=== PATIENT | female | born 1995 | race Caucasian/White ===

== ENCOUNTER 2023-08-21 09:47 | Outpatient (CLI) | payer OTHER, SELFPAY ==
[2023-08-21 14:46] LABS: Chlamydia DNA Amplified* NOT DETECTED (No Detected); GC DNA Amplified* NOT DETECTED (No Detected)
== END 2023-08-21 09:48 | disposition home or self-care (01) ==
PROVIDERS: Visit Provider Physician Assistant
DX: Z34.91 Encounter for supervision of normal pregnancy, unspecified, first trimester (principal); Z3A.09 9 weeks gestation of pregnancy
CPT/HCPCS: 76817; 86592; 86703; 86704; 86706; 86762; 86787; 86803; 86850; 86900; 86901; 87086; 87340; 87491; 87591

== ENCOUNTER 2023-11-06 11:26 | Outpatient (CLI) | payer OTHER, SELFPAY ==
--- NOTE | 2023-11-06 11:45 | CRLHL7_ITS ---
For Patients: As a result of the Century Cures Act, medical imaging exams and procedure reports are released immediately into your electronic medical record. You may view this report before your referring provider. If you have questions, please contact your health care provider. INDICATION: Evaluate anatomy. COMPARISON: 08/21/2023 TECHNIQUE: Real time parry scale imaging of the fetus was performed as well as color Doppler analysis of the umbilical vessels. FINDINGS: Sonographic imaging demonstrates a single living intrauterine gestation. Fetus demonstrates a regular cardiac rate of 131 beats per minute. Fetus has a cephalic position. The placenta lies posterior. The edge of the placenta is located 4.3 cm from the internal cervical os. Amniotic fluid volume appears normal. Single deepest vertical pocket: 6.7 cm. The cervix is closed and measures 3.3 cm in length. The composite ultrasound gestational age is calculated at 20 weeks 3 days with an estimated sonographic due date of 03/22/2024. The estimated weight is 343 grams which lies at the 70th %. The following biometric measurements were obtained: Biparietal diameter: 4.9 cm/20 weeks 6 days 87th% Head circumference: 17.8 cm/20 weeks 2 days 62nd% Abdominal circumference: 15.0 cm/20 weeks 2 days 59th% Femur length: 3.3 cm/20 weeks 1 day 56th% The HC/AC ratio measures: 1.18 range (1.07-1.25) On anatomic survey, there is a normal appearance of the cerebral ventricles, cavum septi pellucidi, cisterna magna and cerebellum. The nose, lips, and facial profile appear normal. The cervical, thoracic and lumbar spine are well visualized and appear normal. There is a normal four-chamber heart view and the left and right ventricular outflow tracts appear normal. The diaphragm and stomach appear normal. The kidneys and bladder also appear normal. There is a normal three-vessel cord and cord insertion site. The four extremities appear normal. IMPRESSION: Normal OB ultrasound exam with concordance of clinical and sonographic dating. No intrinsic abnormalities noted on anatomic survey. Dictated by Roshan Fang MD @ 11/06/2023 2:14:57 PM (Electronically Signed)
== END 2023-11-06 11:27 | disposition home or self-care (01) ==
LOC: US 11:26
PROVIDERS: Visit Provider Advanced Practice Midwife
DX: Z34.92 Encounter for supervision of normal pregnancy, unspecified, second trimester (principal); Z3A.20 20 weeks gestation of pregnancy
CPT/HCPCS: 76805

== ENCOUNTER 2024-01-01 08:33 | Outpatient (CLI) | payer OTHER, SELFPAY | END 2024-01-01 08:34 | disposition home or self-care (01) | LOC: NFLDREF 01-05 13:49 | PROVIDERS: Visit Provider Midwife | DX: Z34.92 Encounter for supervision of normal pregnancy, unspecified, second trimester (principal); Z3A.27 27 weeks gestation of pregnancy | CPT/HCPCS: 86592 ==

== ENCOUNTER 2024-02-26 09:33 | Outpatient (CLI) | payer OTHER, SELFPAY ==
[2024-02-27 10:21] LABS: Strep B DNA Probe Negative (Negative)
[2024-02-27 11:21] LABS: Strep B Susceptibility Needed? No
== END 2024-02-26 09:34 | disposition home or self-care (01) ==
LOC: NFLDREF 09:33
PROVIDERS: Visit Provider Advanced Practice Midwife
DX: Z34.03 Encounter for supervision of normal first pregnancy, third trimester (principal)
CPT/HCPCS: 87081; 87653

== ENCOUNTER 2024-03-19 11:58 | Inpatient (IN) | payer OTHER, SELFPAY ==
[2024-03-19] VITALS (15 sets, daily range): BP systolic 121–137; BP diastolic 76–89; PULSE 52–72; RESP 14–20; TEMP 36.6–37.1; O2SAT 97; BMI 31.4
[2024-03-19 11:47] LABS: Amnisure Rom* POSITIVE
--- NOTE | 2024-03-19 12:41 | W.PM.LDBA ---
Subjective History of Present Illness Narrative: Nette is a 29 yo at 39 0/7 weeks gestation being admitted to Labor and Delivery for ROM of clear fluid that occurred at 7 am this morning. She reports she woke up to a large gush of fluid. She then tried a small pad that she filled 3 of them over the course of an hour. On arrival, amnisure was positive. She continues to leak small amounts of pink-tinged clear fluid. She has started to feel mild cramping but denies painful contractions or bleeding. She is supported in her labor by Luis. She is encouraged to do the labor warm up, eat some lunch, and consider ways to encourage labor. Her full history and physical was dictated by Jaison Kenney CNM on 03/04/24. Please see this for details. Specific Issues/Plans Specific Issues/Plan: ? Partner: ?Luis. H&P completed by DORIS on 03/04/2024? ? No OB problems ? Imaging:? 1st trimester: Single viable intrauterine with estimated gestational age of 9 weeks and 0 days and estimated date of delivery of 03/25/2024. ? Anatomy scan: 11/06/2023 ? ? COVID: ? Flu:? ? Tdap:? 01/13/2024? 32wk Mental Health:? 34wk hgb:? ? Pap: (Only high-risk abnormal pap in problem list) OB - Problem Based A/P Additional Plan (1) PROM (premature rupture of membranes): Status: Acute (2) 39 weeks gestation of : Status: Acute Plan ASSESSMENT:? 29 at 39 0/7 weeks gestation? complicated by:?none Labor type: Spontaneous, early labor? Category 1 FHR pattern.?? Labor complicated by: PROM? GBS negative? ? PLAN:? 1. Routine intrapartum cares as ordered. We discussed PROM and typically labor starts within 24 hours after ROM. We reviewed recommendations are to start pitocin at onset of ROM if not caleb vs expectant management of 6-12 hours. We elected to continue with expectant management at this time. She is encouraged to be active, do labor warm up, can consider nipple stim, and rest to allow labor to start on it's own. At 12 hours we will reassess and consider pitocin augmentation if needed. Plan to hold off on cervical exam due to ROM until 12 hours. All questions answered. Patient agrees with plan. 2. Monitoring per policy, intermittent? 3. Planning unmedicated . Desires water . Consent signed. Hep C negative. Candidate for analgesia of choice.?? 4. Patient encouraged to reposition and ambulate to promote physiologic labor and .? 5. Anticipate ? Delivery/Labor/Induction Plan Plan: expectant management OB Result Labs Blood Type: A (+) positive Rubella: immune RPR/VDLR: nonreactive GBS Status: negative HBsAG: negative OB Exam Physical Exam Vital signs: Pulse BP Pulse Ox 65 123/78 97 03/19/24 11:21 03/19/24 11:21 03/19/24 11:22 Narrative: Vitals Reviewed Constitutional:? Alert and oriented x3 HEENT:? Normocephalic, atraumatic Neck:? Supple Lungs:? Clear to auscultation bilaterally Heart:? Regular rate and rhythm, no murmur, rub or gallop Abdomen:? Soft, nontender, and gravid. Vertex confirmed by bedside US. Extremities:? No edema or erythema Cervix: deferred due to ROM NST: 130 bpm/moderate variability/15x15 accelerations/no decelerations/contractions irregular Detailed Labor and Delivery Exam Patient Gravid: Yes
--- NOTE | 2024-03-19 20:31 | PM.OBPNL ---
Subjective Time Seen by Provider: 19:05 Date Seen: 03/19/24 Narrative: Nette is a at 39 0/7 weeks gestation that presents for PROM this morning at 7 am. She has been very active today with position changes, walking, the birthing ball, and balancing rest. She is feeling cramping, maybe an occasional contraction. She is coping well and supported by her . She continues to leak clear, pink-tinged fluid. She reports active movement and denies any bleeding. Objective Vital Signs: Last Vital Signs Temp 98.4 F 03/19/24 19:43 Pulse 56 L 03/19/24 19:34 Resp 18 03/19/24 19:43 BP 137/89 03/19/24 19:34 Pulse Ox 97 03/19/24 11:22 Plan Plan: ASSESSMENT:? 29 at 39 0/7 weeks gestation? complicated by:?none Labor type: Spontaneous, early labor? Category 1 FHR pattern?? Labor complicated by: PROM? GBS negative? ? PLAN:? 1. Routine intrapartum cares as ordered. We discussed PROM and typically labor starts within 24 hours after ROM. We discussed Pitocin use vs continuing with expectant management. She desires a few more hours. Will reassess then. 2. Monitoring per policy, intermittent. Recommended an NST to assess contraction pattern. 3. Planning unmedicated . Desires water . Consent signed. Hep C negative. Candidate for analgesia of choice.?? 4. Patient encouraged to reposition and ambulate to promote physiologic labor and .? 5. Anticipate .
[2024-03-20] VITALS (113 sets, daily range): BP systolic 99–148; BP diastolic 54–95; PULSE 48–116; RESP 18; TEMP 36.6–37.5; O2SAT 92–100
[2024-03-20] MEDS: LACTATED RINGERS 1000 ML 1,000 ML 999 ML IV ×2 (04:49→05:43)
[2024-03-20 04:59] LABS: Basophils Percent Auto 0.1 % (0.0-3.0); Hematocrit 38.4 % (33.0-51.0); Hemoglobin* 13.4 gm/dL (12.0-16.0); Immature Granulocytes Pct Auto 1.2 %; Lymphocytes Percent Auto 9.6 % (20-44); Mean Corpuscular HGB Conc 35 gm/dL (32-36); Mean Corpuscular Hemoglobin 32 pg (26-34); Mean Corpuscular Volume 92 fL (80-100); Monocytes Percent Auto 4.3 % (0.0-11.0); Neutrophils Percent Auto 83.8 % (42.0-72.0); Platelet Count* 174 K/uL (140-440); Red Blood Count 4.16 m/uL (4.00-5.20); White Blood Count* 17.26 K/uL (4.50-11.00)
[2024-03-20 05:00] LABS: Slide Review Reflex No
[2024-03-20] MEDS: ROPIVACAINE 0.2% 100 ml 100 ML 12 MG EPIDURAL (05:17)
[2024-03-20] MEDS: LIDOCAINE 2% (PF) 5 ML VIAL EPIDURAL (05:18)
--- NOTE | 2024-03-20 05:21 | PM.OBPNL ---
Subjective Date Seen: 03/20/24 Narrative: Nette is a 29 yo G1 at 39 1/7 weeks gestation that presented yesterday with PROM. She had elected expectant management and was very motivated to encourage labor with position changes, ambulation, labor warm up, and rest. She is supported in labor by her , Luis. After last exam around 1900, she was still fairly comfortable but started reporting contractions were intensifying. Her face was flushed at this time and she desired to give it more time before considering pitocin. She has been afebrile. At midnight, she started to work through contractions with breathing and reported they were more regular and intense. At 0330, I was notified to come assess patient as she had entered the small tub and was starting to have a lot of pressure. She was offered to exit the small tub and move to the labor tub which she desired. A cervical exam was performed before she entered the large waterbirth tub. She was 5/70/0, baby had moved down a lot. She was starting to act very panicky and stated multiple times she could not do it anymore. After about an hour in the tub, she requested an epidural and was returned to the bed for IV, fluids, and anesthesia was notified of her request for an epidural. While waiting for an epidural she has reported increase rectal pressure and more constant pressure in her vagina. Objective Exam: Objective: Constitutional: Alert and oriented x3, moderate/severe distress, coping well Vital signs stable, see nurse documentation Abdomen: gravid, contractions palpate moderate/strong with contractions and soft between Cervix: 5 cm/70%/0 station/vertex NST: 135 bpm/moderate variability/15x15 accelerations/variable decelerations/contractions every 2-3 minutes Vital Signs: Last Vital Signs Temp 98.4 F 03/20/24 02:46 Pulse 75 03/20/24 04:50 Resp 18 03/20/24 02:46 BP 124/70 03/20/24 04:50 Pulse Ox 98 03/20/24 02:23 Plan Plan: ASSESSMENT:? 29 at 39 1/7 weeks gestation? complicated by:?none Labor type: Spontaneous, active labor? Category 1 FHR pattern?? Labor complicated by: PROM, ROM >18 hours? GBS negative? ? PLAN:? 1. Routine intrapartum cares as ordered. Continue with expectant management. 2. Monitoring per policy, continuous with epidural. 3. Desires epidural, will continue until delivery. 4. Patient encouraged to reposition to promote physiologic labor and .? 5. ROM >18 hours, will continue to monitor status and temperature. 6. Anticipate .
[2024-03-20] MEDS: fentaNYL 250 MCG/5 ML inj 100 MCG EPIDURAL (05:35)
--- NOTE | 2024-03-20 05:51 | PM.ANBPRC ---
[facility] Medical History History of dysmenorrhea ?Z87.42 - Personal history of other diseases of the female genital tract (ICD-10) Surgical History History of third molar tooth extraction (2016) ?K08.409 - Partial loss of teeth, unspecified cause, unspecified class (ICD-10) Family History Father High blood pressure High cholesterol Mother Thyroid disease Aunt Thyroid disease Maternal Grandmother Thyroid disease Paternal Grandfather Thyroid cancer Other Colon cancer Social History Narrative: Occupation: Speech therapist. Marital status: . Evangelical/cultural needs: no. Chemical or radiation exposure: no. Pre- tobacco use: no. Pre- alcohol use: 0-1 per week. Current tobacco use: no. Current alcohol use: no. Recreational drug use: no. Dietary restrictions: no. Blood transfusion acceptable in an emergency: yes. History of depression or currently depressed: no. Current or past physical, emotional, or sexual mistreatment: no. Problems that will make it hard to make it to appointments: no. What is your current living situation?: I presently have a place to live Problems where you live: no known problems In the past 12 months, utilities in danger of being shut off: no In past 12 months, lack of transportation kept you from medical appts, meetings, work, or getting things needed for daily living: no In the past 12 mos, have been you worried that your food would run out before you had money to buy more?: never true In the past 12 mos, the food you bought just didn't last and you didn't have money to buy more?: never true Smoking Status: Never smoker How often does anyone, including family, friends and others, physically hurt you: never How often does anyone, including family, friends and others, insult or talk down to you: never How often does anyone, including family, friends and others, threaten you with harm: never How often does anyone, including family, friends and others, scream or curse at you: never Meds Home Medications and Allergies Home Medications ?Medication ?Instructions ?Recorded ?Confirmed ?Type docosahexaenoic acid 200 mg mg PO 08/21/23 03/18/24 History capsule ( DHA) Allergies Allergy/AdvReac Type Severity Reaction Status Date / Time No Known Drug Allergies Allergy Verified 03/18/24 09:25 Results Labs Labs: Laboratory Results - last 24 hr 03/19/24 03/19/24 04:48 Unknown WBC 17.26 H RBC 4.16 Hgb 13.4 Hct 38.4 MCV 92 MCH 32 MCHC 35 RDW Coeff of Gladis 12.0 Plt Count 174 Neut % (Auto) 83.8 H Lymph % (Auto) 9.6 L Elliott % (Auto) 4.3 Eos % (Auto) 1.0 Baso % (Auto) 0.1 Neut # (Auto) 14.50 H Lymph # (Auto) 1.70 Elliott # (Auto) 0.70 Eos # (Auto) 0.20 Baso # (Auto) 0.00 Abs Immat Gran (auto) 0.20 Imm/Tot Granulo (auto) 1.2 Membrane Rupture POSITIVE Vital Signs Vital Signs: Last Vital Signs Temp 98.4 F 03/20/24 02:46 Pulse 80 03/20/24 05:50 Resp 18 03/20/24 02:46 BP 138/65 03/20/24 05:50 Pulse Ox 95 03/20/24 05:47 Weight: 88.405 kg Height: 167.64 cm Anesthesia Procedures Epidural Insertion Patient Location: OB Start Time: :00 Stop Time: 06:00 Start Date: 03/20/24 Stop Date: 03/20/24 Reason for Block: primary anesthetic Patient Position: sitting Performed By: Enrico Vazquez Preanesthetic Checklist: IV checked, risks and benefits discussed, surgical consent, monitors and equipment checked, pre-op evaluation, timeout performed and anesthesia consent Prep: chlorhexidine gluconate Monitoring: blood pressure monitoring, phototypesetting equipment monitor, continuous pulse oximetry and heart rate Approach: midline Vertebral Space: lumbar (1-5) Needle Type: Tuohy needle Injection Technique: continuous catheter Needle gauge: 17 Needle Length (cm): 10 cm Needle Insertion Depth (cm): 6 Catheter Gauge: 19 Catheter Type: multi-orifice Catheter at skin depth (cm): 12 Test Dose Result: negative and lidocaine 1.5% with epinephrine 1 to 200,000 Events: other
--- NOTE | 2024-03-20 07:48 | PM.OBPNL ---
Subjective Date Seen: 03/20/24 Narrative: Nette is a 29 yo at 39 1/7 weeks gestation that was presented for PROM yesterday at 7 am. She is now >24 hours with ruptured membranes. She has been afebrile. She is now comfortable with an epidural. She is supported in labor by her . Recommend cervical exam due to recurrent heart rate changes. She did have a cervical exam after epidural was placed and was 7/90/0. Discussed plan with patient and encouraged position changes. Objective Exam: Objective: Constitutional: Alert and oriented x3, no distress, coping well Vital signs stable, see nurse documentation Abdomen: gravid, contractions palpate moderate/strong with contractions and soft between Cervix: 8 cm/90%/0 station/vertex, direct OP by sutures NST: 125 bpm/minimal to moderate variability/15x15 accelerations/late and early decelerations/contractions every 4-6 minutes. Vital Signs: Last Vital Signs Temp 99 F 03/20/24 07:14 Pulse 73 03/20/24 07:35 Resp 18 03/20/24 06:00 BP 107/61 03/20/24 07:35 Pulse Ox 97 03/20/24 07:43 Plan Plan: ASSESSMENT:? 29 at 39 1/7 weeks gestation? complicated by:?none Labor type: Spontaneous, active labor? Category 2 FHR pattern?? Labor complicated by: PROM, ROM >24 hours? GBS negative? ? PLAN:? 1. Routine intrapartum cares as ordered. Continue with expectant management. Discussed pitocin augmentation if contractions remain spaced to help them become more regular and closer together. 2. Monitoring per policy, continuous with epidural. 3. Desires epidural, will continue until delivery. 4. Patient encouraged to reposition to promote physiologic labor and .? 5. ROM >24 hours, will continue to monitor status and temperature. 6. Pt had a couple of elevated BP during epidural placement, none since. Will continue to monitor. 7. Anticipate .
[2024-03-20] MEDS: OXYTOCIN 30 unit/500 ML in NS 30 UNIT/500 ML BAG IVPB (09:43)
[2024-03-20] MEDS: LACTATED RINGERS 1000 ML 1,000 ML 525 ML IV (10:13)
[2024-03-20] MEDS: LIDOCAINE 1 % PF 30 ML INJECTION (13:28)
--- NOTE | 2024-03-20 14:08 | W.PM.OBVAGDE ---
OB Procedure Vag Delivery Mother Details Mother Details: The patient is a 29 year-old, 1, Para 0, admitted on 03/19/24 at 39 0/7 weeks gestation. : 1 Para: 1 Weeks Gestation: 39.1 Admission Date: 03/19/24 Additional Details Amniotic Membrane Status: SROM Amniotic Membrane Rupture Date: 03/19/24 Amniotic Membrane Rupture Time: 07:00 Amniotic Membrane Fluid Description: Clear Analgesia/Anesthesia Type: Epidural Waterbirth: No Pitcoin: Yes (at 9 cm for augmentation and AMTSL) Intrapartal Events: Labor Augmentation Delivery augmentation: pitocin Labor Onset: 00:00 Complete: 10:55 Pushin:41 Heart: heart tones during second stage were category I for the first hour of pushing. At hours two and three FHT were category II with intermittent variable decelerations with return to baseline between contractions. Delivery Details Delivery Date: 03/20/24 Delivery Time: 13:17 Route of delivery: Gender: Female Infant Viability: Alive; Heart Rate Present Position at Delivery: OA Delivery Details: Patient was admitted for PROM that occurred yesterday at 7 am. She declined augmentation and was motived to move, changes, positions, and try to encourage labor. Around midnight she began to get very uncomfortable and attempted to labor in the tub before requesting an epidural. She progressed normally with a protracted active labor phase. Pitocin was started at 9 cm to help bring contractions closer together. Anterior was identified a short time after Pitocin was started and was easily reduced with pushing at 1041. Patient was complete at 1055. She pushed well in multiple positions. of a viable female at 1317 in semi-reclined left tilt. Vertex delivered OA. No nuchal cord or shoulder. Body delivered easily and without incident. passed to mothers abdomen with a vigorous cry. Cord was clamped and cut at > 5 minutes. APGARS were 8 at one minute and 9 at five minutes respectively. Mouth was bulb suctioned. Intact placenta with a 3 vessel cord delivered spontaneously at 1325. Upon inspection, cord insertion to placenta was noted to be marginal. Fundus firm. 2nd degree identified and repaired in typical fashion. Small hymenal tissue was from base with small area attached to perineum and with shared decision make, it was removed. QBL 325 cc. Bladder was I&O'd for 200 after completion of repair. Mother and baby stable; mother plans to breastfeed. weight pending. Of note, patient had a few elevated BP's with epidural placement and pushing. Labs are ordered and pending. 1 Minute Interval Total Score: 8 5 Minute Interval Total Score: 9 Additional Details Shoulder Dystocia: No Placenta Delivery Time: 13:25 Placental Delivery Description: Spontaneous Delivery repair: Vicryl Procedure Done: Global Blood Loss: 325 Laceration: Perineal - 2nd Degree Blood Loss Measurement Type: QBL Bakri Used: No Sponge/Need Count Correct: Yes Cord Vessel Description: 3 Vessels Event Summary Status: Mother and were stable after delivery. Disposition: floor
[2024-03-20] MEDS: ACETAMINOPHEN 500 MG TABLET 1000 MG PO ×2 (14:36→21:56)
[2024-03-20 14:55] LABS: Alanine Aminotransferase* 17 U/L (4-35); Aspartate Amino Transferase* 28 U/L (12-35); Blood Urea Nitrogen* 9 mg/dL (5-24); Creatinine* 0.5 mg/dL (0.5-1.5); Est. Creatinine Clearance* 158.22; Estimated Glomerular Filt Rate 132 ml/min
[2024-03-20 15:20] LABS: Creatinine Urine 93.5 mg/dL; Protein Creatinine Ratio Urine 0.22 (0-0.19); Total Protein Urine 21 mg/dL
[2024-03-21 01:18] VITALS: BP 119/83; PULSE 76; RESP 18; TEMP 36.5; O2SAT 97
[2024-03-21 05:04] VITALS: BP 126/75; PULSE 75; RESP 18; TEMP 36.7; O2SAT 97
[2024-03-21 06:41] LABS: Hemoglobin* 11.3 gm/dL (12.0-16.0)
[2024-03-21 08:14] VITALS: BP 130/61; PULSE 83; RESP 16; O2SAT 97
[2024-03-21] MEDS: ACETAMINOPHEN 500 MG TABLET 1000 MG PO (08:25)
[2024-03-21] MEDS: DOCUSATE SODIUM 100 MG CAPSULE PO (08:26)
--- NOTE | 2024-03-21 08:32 | P.DS_ITS ---
DS: Providers Provider Time Seen by Provider: 08:00 Date Seen: 03/21/24 Date of admission: 03/19/24 11:58 Primary care physician: Not a Local Provider Admitting Clinician: Dot Rapp CNM Attending Physician on discharge: Emmanuelle Bell CNM Date of Discharge: 03/21/24 DS: Diagnosis Discharge Diagnosis (1) care and examination of lactating mother: Status: Acute (2) Second degree laceration of perineum, delivered, current hospitalization: Status: Acute (3) Gestational hypertension: Status: Acute Exam Narrative: Exam Narrative: GENERAL APPEARANCE:? normal affect, alert, no distress MOOD:? appropriate CHEST:? clear to auscultation HEART:? regular rate and rhythm ABDOMEN:? soft, non-tender the uterine fundus is firm At Umbilicus, Midline and is appropriate for the stage of recovery. PERINEUM:? mild edema of the perineum, there is a Perineal Laceration,? 2nd degree that is healing well. EXTREMITIES:? normal and trace edema Const: Vital Signs, click to edit/add: Vital Signs - 24 hr 03/20/24 08:34 03/20/24 08:40 03/20/24 09:04 Temperature 98.4 F Pulse Rate 57 L 55 L Pulse Rate [Pulse Oximeter] Respiratory Rate Blood Pressure 115/64 112/56 L Blood Pressure [Le ft Radial Artery] Pulse Oximetry Oxygen Delivery [facility] 03/20/24 09:19 03/20/24 09:36 03/20/24 09:49 Temperature Pulse Rate 72 60 74 Pulse Rate [Pulse Oximeter] Respiratory Rate Blood Pressure 115/63 132/70 133/75 Blood Pressure [Le ft Radial Artery] Pulse Oximetry Oxygen Delivery [facility] 03/20/24 10:13 03/20/24 10:19 03/20/24 10:34 Temperature 98.5 F Pulse Rate 67 Pulse Rate [Pulse Oximeter] Respiratory Rate Blood Pressure 136/60 145/64 H Blood Pressure [Le ft Radial Artery] Pulse Oximetry Oxygen Delivery [facility] 03/20/24 10:49 03/20/24 10:58 03/20/24 11:03 Temperature Pulse Rate 73 Pulse Rate [Pulse Oximeter] Respiratory Rate Blood Pressure 139/95 H Blood Pressure [Le ft Radial Artery] Pulse Oximetry 98 99 Oxygen Delivery [facility] 03/20/24 11:04 03/20/24 11:05 03/20/24 11:08 Temperature 99 F Pulse Rate 64 Pulse Rate [Pulse Oximeter] Respiratory Rate Blood Pressure 128/66 Blood Pressure [Le ft Radial Artery] Pulse Oximetry 99 Oxygen Delivery [facility] 03/20/24 11:13 03/20/24 11:18 03/20/24 11:19 Temperature Pulse Rate 66 Pulse Rate [Pulse Oximeter] Respiratory Rate Blood Pressure 128/72 Blood Pressure [Le ft Radial Artery] Pulse Oximetry 97 97 Oxygen Delivery [facility] 03/20/24 11:23 03/20/24 11:28 03/20/24 11:33 Temperature Pulse Rate Pulse Rate [Pulse Oximeter] Respiratory Rate Blood Pressure Blood Pressure [Le ft Radial Artery] Pulse Oximetry 99 99 99 Oxygen Delivery [facility] 03/20/24 11:38 03/20/24 11:43 03/20/24 11:48 Temperature Pulse Rate Pulse Rate [Pulse Oximeter] Respiratory Rate Blood Pressure Blood Pressure [Le ft Radial Artery] Pulse Oximetry 97 99 100 Oxygen Delivery [facility] 03/20/24 11:50 03/20/24 11:53 03/20/24 11:58 Temperature Pulse Rate 57 L Pulse Rate [Pulse Oximeter] Respiratory Rate Blood Pressure 127/64 Blood Pressure [Le ft Radial Artery] Pulse Oximetry 98 99 Oxygen Delivery [facility] 03/20/24 12:03 03/20/24 12:31 03/20/24 12:35 Temperature 99.5 F Pulse Rate 66 Pulse Rate [Pulse Oximeter] Respiratory Rate Blood Pressure 142/77 H Blood Pressure [Le ft Radial Artery] Pulse Oximetry 97 Oxygen Delivery [facility] 03/20/24 13:13 03/20/24 13:18 03/20/24 13:20 Temperature Pulse Rate 69 Pulse Rate [Pulse Oximeter] Respiratory Rate Blood Pressure 146/68 H Blood Pressure [Le ft Radial Artery] Pulse Oximetry 99 100 Oxygen Delivery [facility] 03/20/24 13:23 03/20/24 13:26 03/20/24 13:28 Temperature Pulse Rate 77 Pulse Rate [Pulse Oximeter] Respiratory Rate Blood Pressure 135/63 Blood Pressure [Le ft Radial Artery] Pulse Oximetry 98 98 Oxygen Delivery [facility] 03/20/24 13:33 03/20/24 13:38 03/20/24 13:41 Temperature 99.1 F Pulse Rate 69 Pulse Rate [Pulse Oximeter] Respiratory Rate Blood Pressure 135/62 Blood Pressure [Le ft Radial Artery] Pulse Oximetry 97 97 [facility] 03[facility] 13:43 03/20/24 13:48 03/20/24 13:53 Temperature Pulse Rate Pulse Rate [Pulse Oximeter] Respiratory Rate Blood Pressure Blood Pressure [Le ft Radial Artery] Pulse Oximetry 98 98 98 [facility] 03[facility]20/24 13:56 03/20/24 14:11 03/20/24 14:26 Temperature Pulse Rate 59 L 76 Pulse Rate [Pulse Oximeter] Respiratory Rate Blood Pressure 134/67 132/67 131/74 Blood Pressure [Le ft Radial Artery] Pulse Oximetry [facility] 03/20/24 14:41 03/20/24 14:56 03/20/24 15:02 Temperature 99.3 F Pulse Rate 76 76 Pulse Rate [Pulse Oximeter] Respiratory Rate Blood Pressure 131/76 124/68 Blood Pressure [Le ft Radial Artery] Pulse Oximetry [facility] 03/20/24 15:11 03/20/24 15:26 03/20/24 17:21 Temperature 98.3 F Pulse Rate 80 91 Pulse Rate [Pulse Oximeter] Respiratory Rate Blood Pressure 127/69 130/69 Blood Pressure [Le ft Radial Artery] Pulse Oximetry [facility] 03/20/24 19:16 03/21/24 01:18 03/21/24 05:04 Temperature 97.8 F 97.7 F 98.0 F Pulse Rate Pulse Rate [Pulse Oximeter] 66 76 75 Respiratory Rate 18 18 18 Blood Pressure Blood Pressure [Le ft Radial Artery] 128/68 119/83 126/75 Pulse Oximetry 96 97 97 [facility] Room Air Room Air 03/21/24 08:14 Temperature Pulse Rate Pulse Rate [Pulse Oximeter] 83 Respiratory Rate 16 Blood Pressure Blood Pressure [Le ft Radial Artery] 130/61 Pulse Oximetry 97 [facility] Documenting provider has reviewed patient's vital signs: yes OB - DS: Summary Hospital Course Hospital Course: Nette is a 29 y.o. who was admitted to [facility] for SROM without labor onset. ?She had an uncomplicated NVD.?The patient feels well. ?The pain is well controlled with current medications. ?She has no new complaints. ?She is breast feeding and reports things are going ok, she would like to see today for support.? the patient has done well.? Vitals have been stable.? She has remained afebrile.? Has a good appetite, is tolerating a general diet. ?She is voiding without difficulty.? She is passing gas and has not had a bowel movement.? She is ambulating and denies any dizziness.? Has Small amount of rubra lochia. ?She is undecided on her plan for preventio n. She has had some elevated blood pressures during her hospital stay which gives her a diagnosis of GHTN. Current BP ranges are below 140/90. We discussed warning s/s of preeclampsia in the stage today. Peripartum Data delivery method: Vaginal Laceration description: Periurethral - 2nd Degree complications: none [place] Infant Gender: Female Discharge Plan: Home Status at Discharge Functional status at discharge: independent ambulation Overall status at discharge: patient is progressing back to baseline Time Spent with Patient Time attestation: Total time spent providing and/or coordinating discharge services: Time spent: Less than 30 minutes Discharge Plan Discharge Disposition: Home, Self-Care Date of Admission: 03/19/24 11:58 Attending Provider on Discharge: Emmanuelle Bell Primary Care Provider: Provider,Not a Local Condition: Stable Anticipated Discharge Date/Time: 03/21/24 17:45 Discharge Medications: New acetaminophen 500 mg Tablet 1,000 mg PO Q6H PRNQty: 0 0RF docusate sodium 100 mg Capsule 100 mg PO DAILY Qty: 90 0RF ibuprofen 600 mg Tablet 600 mg PO Q6H PRNQty: 60 0RF Continued DHA 200 mg capsule PO Discharge Orders: Discharge Order (Routine); Ordered 03/21/24 Ordered By: Emmanuelle Bell Patient Education: OB Over the Counter Medication Information, OB Vaginal/Breast Feeding Additional Instructions: Discharge instructions were reviewed with the patient including signs and symptoms of infection and home going medications Nothing vaginally for 6 weeks: no tampons or intercourse Off Work or School for 6 weeks Symptoms to report to doctor: * Bleeding that saturates more than one pad per hour * Passing clots larger than the size of a golf ball * Pain not relieved by prescribed medication * Fever above 100.4 degrees Fahrenheit * A foul vaginal odor * Difficulty in emotions, mood, and functions * Thoughts of hurting yourself and/or * Painful, reddened area in your breast * Any drainage, redness, or tenderness in your IV/epidural site * Severe headache that doesn't improve after taking medications * Changes in vision, including temporary loss of vision, blurred vision, and/or light sensitivity * Upper abdominal pain (usually under ribs on the right side) * Decrease in urination or painful, frequent urinating * Chest pain * Shortness of breath * Tenderness or pain with redness and/swelling in the calf(s) of your leg [facility] for [facility] BP check?03/23/24 Call with BP greater than or equal to 150/100 2-week visit: discuss infant feeding concerns, review control options and screen for anxiety/depression. 6-week visit for an annual exam. consultation services are available to all mothers and babies for the first year after delivery.? To make an appointment, please call [phone]. Activity Level: Activity as Tolerated Discharge Diet: Regular Follow Up Appointments: Provider,Not a Local [Primary Care Provider] - [facility] [Provider Group] Forms: Pliz[employer] Info Instructions
--- NOTE | 2024-03-21 08:39 | PM.ANPOST ---
Post Anesthesia Note Post Anesthesia Note Patient seen: Inpatient Respiratory Status: adequate Cardiovascular Status: adequate Mental Status: baseline Pain: adequate Temp: baseline Anesthetic awareness: N/A Complications: none Follow care: none
[2024-03-21 13:22] VITALS: BP 113/68; PULSE 92; RESP 16; O2SAT 97
[2024-03-21 17:37] VITALS: BP 131/82; PULSE 87; RESP 16; O2SAT 97
[2024-03-22 01:14] LABS: Rapid Plasma Reagin (RPR) Non Reactive (Non Reactive)
== END 2024-03-21 18:22 | disposition home or self-care (01) | DRG 807 ==
LOC: OB OUT 11:58 → OB 11:58
PROVIDERS: Admitting Provider Advanced Practice Midwife; Visit Provider Advanced Practice Midwife
DX: O42.12 Full-term premature rupture of membranes, onset of labor more than 24 hours following rupture (principal); Z37.0 Single live birth; O13.4 Gestational [pregnancy-induced] hypertension without significant proteinuria, complicating childbirth; Z3A.39 39 weeks gestation of pregnancy; O76 Abnormality in fetal heart rate and rhythm complicating labor and delivery; O70.1 Second degree perineal laceration during delivery
CPT/HCPCS: 01967; 36415; 76815; 82565; 82570; 84112; 84156; 84450; 84460; 84520; 85018; 85025; 86592; 86850; 86900; 86901; 88307; A9270; J2003; J2371; J2795; J3010; J7120

== ENCOUNTER 2024-03-28 14:30 | Outpatient (CLI) | payer OTHER, SELFPAY ==
--- NOTE | 2024-03-28 16:24 | W.PM.LAC.MC ---
Consult Note - Mom Date of Visit Date of visit: 03/28/24 Reason for consultation: Assistance Needed Visit Code: Visit Patient's Information Phone number: [phone] : 1 Para: 1 Allergies No Known Drug Allergies Allergy (Verified 03/18/24 09:25) Mother's Medical History: Medical History (Updated 03/26/24 @ 00:01 by Background Daemon) History of dysmenorrhea ?Z87.42 - Personal history of other diseases of the female genital tract (ICD-10) Work Plans: return to work in a few months Delivery Information Delivery type: Vaginal Gestational Age: 39+1 Gestational Weight For Age: AGA Weight: 3.425 kg Discharge Weight: 3.296 kg Baby's Information Baby's Age at Visit: 8 days Baby's Provider or Clinic: [facility] Jaundice: Yes Past Experience Past Experience: No Current Frequency of Day Feedings: trying every 3 hours, sometimes too sleepy Frequency of Night Feedings: same Both Breasts: Yes (offering) Suck: strong Latch: comfortable Length of Time: 5-15 min Goals: 1 year Pumping Pumping: No Supplementing EBM Supplement: No Formula Supplement: No Baby Elimination Number of Wet Diapers a Day: ea feeding Number of BM a Day: almost ea feeding Breast/Nipple Condition Breast Information: Breasts are symmetrical with rounded lower quadrants, intramammary distance is less than 1.5 inches. No erythema. Nipples are supple, everted prior to feeding. Breast Shape: Round Engorgement: No Maternal Nipple Condition - Left: Common Nipple Maternal Nipple Condition - Right: Common Nipple Sore Nipples: Yes (slight) Interventions for Sore Nipples: Lansinoh/Nipple Cream Baby Assessment Skin: Normal Tongue/frenulum: Normal/elastic Palate: Average Lips: Relaxed and Symmetrical Jaw Alignment: Symmetrical Mucosa: [place], moist Onsite Observation Pre-Feed weight: 3.6 kg Post-Feed weight: 3.694 kg Milk Transferred (mL): 94 (nursed 15 min on one breast) Position: Cross cradle Attachment/latch-on achieved: With difficulty (babe was sleepy and not interested) Suck pattern: Suck burst and normal rest Swallow: Audible, consistent Behavior following feed: Alert, content Pre-Nursing Left Nipple: Within Normal Limits Pre-Nursing Right Nipple: Within Normal Limits Post-Nursing Left Nipple: Within Normal Limits Assessments/Interventions Assessments/Interventions: Measured for flange size; nipples 21 mm so recommend flange size of 24mm Education provided: Early feeding cues to maximize timing of latching, Asymmetric latch technique for wide/deep latch to increase milk, Transfer for baby and increase comfort for mom, Supply/demand nature of milk supply, Need for frequent stimulation/milk removal, Pumping for milk management and Milk collection, storage Handouts Provided: stomach size Spectra pumping guidelines Milk collection and storage Follow-Up Suggested follow up: Appointment as needed Time Spent Time spent with patient (min): 90 (time spent reviewing EMR and face to face with baby, mom and dad) Meds Home Medications and Allergies Home Medications ?Medication ?Instructions ?Recorded ?Confirmed ?Type docosahexaenoic acid 200 mg 200 mg PO DAILY 08/21/23 03/21/24 History capsule ( DHA) Allergies Allergy/AdvReac Type Severity Reaction Status Date / Time No Known Drug Allergies Allergy Verified 03/18/24 09:25
== END 2024-03-28 14:31 | disposition home or self-care (01) ==
PROVIDERS: Visit Provider Obstetrics & Gynecology
DX: Z39.1 Encounter for care and examination of lactating mother (principal)
CPT/HCPCS: G0463

== ENCOUNTER 2024-04-07 09:32 | Outpatient (CLI) | payer OTHER, SELFPAY ==
--- NOTE | 2024-04-07 12:38 | P.LACF_ITS ---
Follow-Up Note: Mom Date of visit Date of visit: 04/07/24 Reason for consultation: Assistance Needed and Breast/Nipple Issue (nipple pain, nipple thrush) Visit Code: Visit Patient's Information Allergies No Known Drug Allergies Allergy (Verified 04/05/24 12:05) Delivery Information Last Weight: 3.6 kg Baby's Information Baby's name: Carol Mullen Baby's Age at Visit: 18 days Baby's Provider or Clinic: [facility] Current Frequency of Day Feedings: every 3 hours Frequency of Night Feedings: every 4-4.5 hours Both Breasts: Yes Suck: strong Latch: shallow Length of Time: 20-23 min on 1st side,then 15-28 on 2nd side Supplementing EBM Supplement: Yes (when nursing too painful) Formula Supplement: No Baby Elimination Number of Wet Diapers a Day: ea feeding or more Number of BM a Day: 3-4/day Breast/Nipple Assessment Breast/Nipple Assessment: Breasts are symmetrical with rounded lower quadrants, intramammary distance is less than 1.5 inches. Nipple/areola shiny and erythematous. Open area on right nipple at the 9 o'clocl position Open area on the left nipple at the 2 o'clocl position. Nipples are supple, everted prior to feeding. Breast Shape: Round Engorgement: No Maternal Nipple Condition - Left: Short (everts easily with gentle stimulation) Maternal Nipple Condition - Right: Short (everts easily with gentle stimulation) Sore Nipples: Yes Interventions for Sore Nipples: Other (started APNO cream 2 days from [employer]) Onsite Observation Pre-feed weight: 3.934 kg (up 334 gms in 10 days) Post-Feed weight: 4.012 kg Milk Transferred (mL): 78 Pre-Nursing Left Nipple: Redness and Crusting/Scabs Pre-Nursing Right Nipple: Redness and Crusting/Scabs Post-Nursing Left Nipple: Redness and Creased/Beveled Post-Nursing Right Nipple: Redness and Creased/Beveled Assessments/Interventions Assessments/Interventions: Nipple pain: Given mom's creased nipple after feeding, discussed need for a deeper latch; techniques to achieve reviewed. Mom able to get a more comfortable latch on her left side than her right. Importance of waiting for wider open mouth emphasized. Discussed adding in a probiotic to help combat yeast infection Feeding: Mom notes baby takes 10-15 minutes to wake well for feedings when she starts at 3 hours; wakes a bit better with middle of the night feedings when baby wakes more independently. Discussed beginning waking process at 3 hours of talking to baby, unswaddling, etc but ok to wait for latching until baby more awake to hopefully get a wider, deeper latch. If mom needs to pump and bottle due to pain, offer 3-4oz via bottle; discussed overall caloric needs for baby of her age/weight. Education provided: Early feeding cues to maximize timing of latching (discussed a trial of waiting for baby to wake more independently to see if helps baby open wider and be more eager for feedings), Asymmetric latch technique for wide/deep latch to increase milk, Transfer for baby and increase comfort for mom, Sore nipple treatment options (add breast shells to nipples between feedings vs. silverettes) and Pumping for milk management Handouts Provided: Pediatric dentists for tongue tie release evaluation; discussed if baby can work on getting tongue down and mouth wide so mom can get a deeper latch, may not need a tether release. Chiropractic/craniosacral therapy options discussed as an alternative treatment option Follow-Up Suggested follow up: Appointment in 1-3 days (appt in 5 days given change in feeding plan) Meds Home Medications and Allergies Allergies Allergy/AdvReac Type Severity Reaction Status Date / Time No Known Drug Allergies Allergy Verified 04/05/24 12:05
== END 2024-04-07 09:33 | disposition home or self-care (01) ==
LOC: OB LAC 09:32
PROVIDERS: Visit Provider Obstetrics & Gynecology
DX: Z39.1 Encounter for care and examination of lactating mother (principal)
CPT/HCPCS: G0463

== ENCOUNTER 2024-04-12 09:30 | Outpatient (CLI) | payer OTHER, SELFPAY ==
--- NOTE | 2024-04-12 15:18 | W.PM.LAC.MF ---
Follow-Up Note: Mom Date of visit Date of visit: 04/12/24 Reason for consultation: Assistance Needed and Breast/Nipple Issue Visit Code: Visit Patient's Information Allergies No Known Drug Allergies Allergy (Verified 04/05/24 12:05) Delivery Information Last Weight: 3.934 kg Baby's Information Baby's name: Carol Mullen Baby's Age at Visit: 23 days Baby's Provider or Clinic: [facility] Current Frequency of Day Feedings: every 3-3.5 hours, babe waking self more indep for feeds in the last 5 days Frequency of Night Feedings: 4-45. hours Both Breasts: Yes Suck: strong Latch: probably still needs to be deeper per mom Length of Time: 17-20 min ea side Pumping Pumping: Yes Quantity Pumped: 5-6 oz in 10 min Supplementing EBM Supplement: Yes (takes bottles 1-2 times/day) Formula Supplement: No Baby Elimination Number of Wet Diapers a Day: ea feeding Number of BM a Day: 3-4/day Breast/Nipple Assessment Breast/Nipple Assessment: Breasts are symmetrical with rounded lower quadrants, intramammary distance is less than 1.5 inches. No erythema. Nipples are supple, everted prior to feeding. Bilateral redness noted; open abrasions on both nipples. Right at the 9 o'clock position, and left at the 2 o'clock position- both wounds measure 7mm tall by 4-5 mm wide. Breast Shape: Round Engorgement: No Sore Nipples: Yes Onsite Observation Pre-feed weight: 4.04 kg Post-Feed weight: 4.088 kg Milk Transferred (mL): 48 (mom describes not a typical feeding since not usual feeding time) Assessments/Interventions Assessments/Interventions: observation: Mom reports she is having less nipple pain, more comfortable with nursing (but still hurts); able to allow water to cascade over nipples while in the shower which is an improvement in the last 5 days. No signs of gene in the baby's mouth Mom latched baby to right breast; took a few attempts but able to get baby on deeper and mouth open wider, closer to 150*. When baby comes off breast, nipple still slightly creased and open wound inflamed. Mom states overall nipples less creased after feedings since last week, but still struggling to get baby on deep enough and sustain latch. Mom then latched baby to left breast, more easily but still painful.? After a few minutes mom repositioned baby to a deeper latch, more comfortable, but baby pulls off and wants to be on with a shallow latch. Mom asked about a nipple shield use as this is something she saw on the internet to help heal nipples. We discussed pros and cons of use and mom would like to try this. Nipple shield given, instruction for use described and applied; baby able to latch deeply, mom reported no pain with use and open abrasion less red than similar spot on right breast/nipple after nursing. Mom will consider using a few feedings/day to ease pressure on nipple and help healing. Discussed option of moist wound healing with MediHoney and parchment paper to open wounds on nipples; mom will consider Education provided: Asymmetric latch technique for wide/deep latch to increase milk, Transfer for baby and increase comfort for mom, Supply/demand nature of milk supply, Sore nipple treatment options, Use of nipple shield and Pumping for milk management Follow-Up Suggested follow up: Phone call in 24-48 hours and Appointment as needed Time Spent Time spent with patient (min): 90 Meds Home Medications and Allergies Allergies Allergy/AdvReac Type Severity Reaction Status Date / Time No Known Drug Allergies Allergy Verified 04/05/24 12:05
== END 2024-04-12 09:31 | disposition home or self-care (01) ==
LOC: OB LAC 09:31
PROVIDERS: Visit Provider Obstetrics & Gynecology
DX: Z39.1 Encounter for care and examination of lactating mother (principal)
CPT/HCPCS: G0463

== ENCOUNTER 2024-05-24 08:09 | Outpatient (CLI) | payer OTHER, SELFPAY | END 2024-05-24 08:10 | disposition home or self-care (01) | PROVIDERS: Visit Provider Nurse Practitioner Family | DX: Z13.1 Encounter for screening for diabetes mellitus (principal); Z13.6 Encounter for screening for cardiovascular disorders | CPT/HCPCS: 80061; 82947 ==

== ENCOUNTER 2025-02-03 08:09 | Outpatient (CLI) | payer OTHER, SELFPAY ==
--- NOTE | 2025-02-03 08:15 | CRLHL7_ITS ---
For Patients: As a result of the Cures Act, medical imaging exams and procedure reports are released immediately into your electronic medical record. You may view this report before your referring provider. If you have questions, please contact your health care provider. OB ULTRASOUND INDICATION: Dating and viability. TECHNIQUE: Real time grayscale imaging of the fetus was performed. Transvaginal. Transvaginal imaging performed to better demonstrate the endometrium and ovaries. LMP: 12/03/2024. JING by LMP: 09/09/2025. GA: 8 w, 6 d. Previous US: No. CRL: 1.0 cm. 7 w 0 d. JING: 09/22/2025. FHR: 138 BPM. Gestational sac: 1.8 cm. Appears within normal limits. Yolk sac: 3.0 mm. Appears within normal limits. Right ovary: 3.7 x 1.8 x 2.0 cm. Left ovary: N/V. IMPRESSION: Single living intrauterine measures 7 weeks 0 days with sonographic due date 09/22/2025. Mild incidental cystic change associated with the decidual reaction, considered normal. Roshan Fang M.D. Diagnostic Radiologist [email or web address]/Dictated by: Roshan Fang MD @ 02/03/2025 9:31:00 AM (Electronically Signed)
== END 2025-02-03 08:10 | disposition home or self-care (01) ==
LOC: US 08:10
PROVIDERS: PCP Nurse Practitioner Family; Visit Provider Advanced Practice Midwife
DX: Z34.91 Encounter for supervision of normal pregnancy, unspecified, first trimester (principal); Z3A.01 Less than 8 weeks gestation of pregnancy
CPT/HCPCS: 76817

== ENCOUNTER 2025-02-03 09:43 | Outpatient (CLI) | payer OTHER, SELFPAY ==
[2025-02-03 16:06] LABS: Chlamydia DNA Amplified* NOT DETECTED (No Detected); GC DNA Amplified* NOT DETECTED (No Detected)
== END 2025-02-03 09:44 | disposition home or self-care (01) ==
PROVIDERS: PCP Nurse Practitioner Family; Visit Provider Advanced Practice Midwife
DX: Z34.91 Encounter for supervision of normal pregnancy, unspecified, first trimester (principal); Z3A.08 8 weeks gestation of pregnancy
CPT/HCPCS: 82565; 82570; 83020; 83021; 84156; 84443; 84450; 84460; 84520; 85660; 86592; 86703; 86704; 86706; 86762; 86787; 86803; 86850; 86900; 86901; 87086; 87340; 87491; 87591

== ENCOUNTER 2025-02-06 06:30 | Outpatient (CLI) | payer OTHER, SELFPAY | END 2025-02-06 06:31 | disposition home or self-care (01) | LOC: NFLDREF 02-09 17:47 | PROVIDERS: PCP Nurse Practitioner Family; Referring Provider Nurse Practitioner Family; Visit Provider Advanced Practice Midwife | DX: Z87.59 Personal history of other complications of pregnancy, childbirth and the puerperium (principal) | CPT/HCPCS: 82570; 84156 ==

== ENCOUNTER 2025-02-24 11:21 | Outpatient (CLI) | payer OTHER, SELFPAY ==
--- NOTE | 2025-02-24 11:30 | CRLHL7_ITS ---
For Patients: As a result of the Cures Act, medical imaging exams and procedure reports are released immediately into your electronic medical record. You may view this report before your referring provider. If you have questions, please contact your health care provider. JING by US: 09/22/2025. GA: 10w, 0d. INDICATION: Cystic structure around gestational sac. CRL: 3.5 cm, 10w 3d. JING 09/21/2025. FHR: 165 bpm. GESTATIONAL SAC: 4.1 cm, appears within normal limits. YOLK SAC: 4.3 mm, appears within normal limits. RIGHT OVARY: 3.6 x 1.7 x 1.9 cm, CL. LEFT OVARY: 3.8 x 2.1 x 2.1 cm. IMPRESSION: 1. Single living intrauterine measures 10 weeks 1 day with a sonographic due date 09/21/2025. 2. Probable physiologic incomplete development of the abdominal wall. Follow-up ultrasound in 12 weeks recommended. Roshan Fang M.D. Diagnostic Radiologist [email or web address] bM/Dictated by: Roshan Fang MD @ 02/24/2025 2:25:00 PM (Electronically Signed)
== END 2025-02-24 11:22 | disposition home or self-care (01) ==
LOC: US 11:22
PROVIDERS: PCP Nurse Practitioner Family; Visit Provider Advanced Practice Midwife
DX: O28.3 Abnormal ultrasonic finding on antenatal screening of mother (principal); Z3A.10 10 weeks gestation of pregnancy
CPT/HCPCS: 76816; 76817

== ENCOUNTER 2025-02-24 13:03 | Outpatient (CLI) | payer OTHER, SELFPAY | END 2025-02-24 13:04 | disposition home or self-care (01) | PROVIDERS: PCP Nurse Practitioner Family; Visit Provider Midwife | DX: Z34.81 Encounter for supervision of other normal pregnancy, first trimester (principal); Z3A.10 10 weeks gestation of pregnancy ==